=== PATIENT | male | born 1990 | race Caucasian/White ===

== ENCOUNTER 2016-09-18 15:20 | Emergency (ER) | payer BC ==
[2016-09-18 15:56] LABS: HEMOGLOBIN 14.1 gm/dl (14.0-17.5); RED BLOOD COUNT 4.95 M/UL (4.20-5.50); WHITE BLOOD COUNT 5.3 K/UL (4.5-11.0)
[2016-09-18 16:19] LABS: BUN/CREATININE RATIO 8 (0-10)
== END 2016-09-18 19:24 | disposition home or self-care (01) ==
LOC: ER1 15:20
PROVIDERS: Emergency Medicine
DX: R19.7 Diarrhea, unspecified (principal); F17.200 Nicotine dependence, unspecified, uncomplicated
CPT/HCPCS: 36415; 80053; 81001; 82150; 83690; 85025; 87045; 87046; 89055; 96374; 96375; 99284; J2405; J2550; J7030